=== PATIENT | male | born 2000 | race African-American/Black ===

== ENCOUNTER 2025-05-10 01:21 | Emergency (ER) | payer BC ==
[~2025-05-10] VITALS: Ht 185.4 cm; Wt 117.9 kg
[2025-05-10 01:27] VITALS: PULSE 79; RESP 16; TEMP 99.8; O2SAT 98
[2025-05-10] MEDS ORDERED: KETOROLAC TROME10 MG PO (01:39)
[2025-05-10] MEDS ORDERED: AMOXICILLIN500 MG PO (01:39)
== END 2025-05-10 01:40 | disposition home or self-care (01) ==
LOC: ER 01:39
DX: S00.411A Abrasion of right ear, initial encounter (principal); X58.XXXA Exposure to other specified factors, initial encounter; Y93.E8 Activity, other personal hygiene; Y92.019 Unspecified place in single-family (private) house as the place of occurrence of the external cause
CPT/HCPCS: 99283